=== PATIENT | male | born 1960 | race Caucasian/White ===

== ENCOUNTER → 2018-03-15 | Outpatient (CLI) | payer OTHER ==
--- NOTE | 2018-03-15 12:04 | XR ---
EXAMINATION TYPE: XR Hip Complete LT DATE OF EXAM: 03/15/2018 CLINICAL HISTORY: pain TECHNIQUE: AP and frogleg views of the left hip are obtained. COMPARISON: None. FINDINGS: There is no acute fracture/dislocation evident. The joint space appears within normal li mits. The overlying soft tissue appears unremarkable. IMPRESSION: 1. There is no acute fracture or dislocation.ICD 10 NO FRACTURE, INITIAL EVALUATION
== END ==
LOC: RADXRMAIN 10:44
PROVIDERS: ATTEND Internal Medicine
DX: M25.552 Pain in left hip (principal)
CPT/HCPCS: 73502

== ENCOUNTER → 2019-03-12 | Outpatient (CLI) | payer OTHER ==
--- NOTE | 2019-03-13 07:18 | CT ---
EXAMINATION TYPE: CT soft tissue neck w con DATE OF EXAM: 03/12/2019 COMPARISON: None HISTORY: Left sided facial swelling x6 months. CT DLP: 797 mGycm CONTRAST: Patient injected with 100ml mL of Isovue 300. TECHNIQUE: Axial images at 3 mm thick sections. Reconstructed images in the coronal plane and sagitt al plane are reviewed. FINDINGS: Limited CT sections are obtained the lung apices. The lung apices appear clear. CT neck: The torus tubarius and fossa of Rosenmuller are normal. Cost Recovery Technician spaces are normal. Para nasal sinuses and mastoid air cells are clear. Left parotid gland extends somewhat more anterior than the right adjacent to the nautical instrument mechanic muscles. Significant obvious discrepancy in size not otherwise apparent. No underlying mass or cysts evident. Parotid gland density is homogenous and symmetrical with contralateral side. Submandibular glands, are normal. Small left submandibular lymph node is present. Parapharyngeal spac es are normal. No suspicious adenopathy is evident. The hypopharynx appears within normal limits. Vocal cord level appear symmetrical. Thyroid as visualized is normal. Osseous structures are normal. IMPRESSIONS: 1. Appears to be some slight subtle asymmetry of the parotid glands. Density however is similar with no underlying masses.
== END ==
LOC: RADCTMAIN 17:23
PROVIDERS: ATTEND Otolaryngology
DX: K11.8 Other diseases of salivary glands (principal)
CPT/HCPCS: 70491; Q9967

== ENCOUNTER → 2019-04-21 | Outpatient (CLI) | payer OTHER ==
--- NOTE | 2019-04-21 14:40 | CT ---
EXAMINATION TYPE: CT abdomen pelvis w con DATE OF EXAM: 04/21/2019 COMPARISON: None. HISTORY: Abdominal pain CT DLP: 1545 mGycm, Automated Exposure Control for Dose Reduction was Utilized. CONTRAST: CT scan of the abdomen and pelvis is performed with oral and with IV Contrast, patient injected with 100 mL of Isovue 300. FINDINGS: LUNG BASES: Scattered bilateral small but suspicious pulmonary nodules measuring up to 5 mm right low er lobe axial image 12 and 6 x 4 mm left lower lobe axial image 9. LIVER/GB: Liver heterogeneously hypodense relative to spleen suggesting mild diffuse fatty infiltrati on. PANCREAS: No significant abnormality is seen. SPLEEN: No significant abnormality is seen. ADRENALS: No significant abnormality is seen. KIDNEYS: Simple appearing 1.4 cm thin-walled cyst anterolaterally upper pole left kidney axial image 33 series 7. BOWEL: Oral contrast reaches the level of the left colon making evaluation of distal ball slightly yan boptimal. Stomach is poorly distended and suboptimally evaluated. Appendix not seen with certainty yan spected surgically absent from the cecum. There are diverticula in the proximal sigmoid colon where t here is moderate to severe eccentric wall thickening and mild to moderate ill-defined fluid and fat s tranding centered left upper pelvis axial image 62. No well-formed fluid collection or abscess. No pn eumoperitoneum. PROSTATE/SEMINAL VESICLES: No gross abnormality seen. LYMPH NODES: No greater than 1cm abdominal or pelvic lymph nodes are appreciated. Mild mesenteric tobar ziness left upper to mid abdomen with slightly prominent but subcentimeter scattered lymph nodes. Thi s is nonspecific finding. OSSEOUS STRUCTURES: Mildly anterior wedging L2 vertebra. Multilevel moderate to severe spurring throu ghout the thoracolumbar spine. Moderate to severe disc space narrowing and vacuum disc phenomenon L5- S1 level. Facet arthropathy lower lumbar levels. Moderate axial joint space loss both hips. Osseous s tructures are demineralized. OTHER: No significant additional abnormality is seen. IMPRESSION: 1. Mild to moderate uncomplicated acute diverticulitis proximal sigmoid colon left upper pelvis is pr esent. Degree of wall thickening at this level slightly more prominent or suspicious than expected. F ollow-up colonoscopy after treatment is advised to rule out neoplasm. 2. Scattered small bilateral pulmonary nodules worrisome for hematogenous metastatic disease. Nonemer gent follow-up contrast enhanced chest CT is advised to further evaluate for possible additional nodu les.
== END | disposition home or self-care (01) ==
LOC: RADCTMAIN 11:56
PROVIDERS: ATTEND Internal Medicine
DX: K57.32 Diverticulitis of large intestine without perforation or abscess without bleeding (principal)
CPT/HCPCS: 36415; 74177

== ENCOUNTER 2021-05-01 10:17 | Emergency (ER) | payer OTHER ==
[2021-05-01] MEDS ORDERED: IPRATROPIUM-ALBUTEROL 3 ML NEB INHALATION STA (10:39)
[2021-05-01] MEDS ORDERED: methylPREDNISolone SOD SUCCI 125 MG/2 ML VIAL IV STA (10:39)
--- NOTE | 2021-05-01 10:43 | ED ---
General Adult HPI - General Chief complaint: Shortness of Breath Stated complaint: SOB Time Seen by Provider: 05/01/21 10:20 Source: patient, RN notes reviewed, old records reviewed Mode of arrival: ambulatory Limitations: no limitations - History of Present Illness Initial comments: This is a 61-year-old male who presents emergency department stating that he had his: Vaccines back in August. Patient states he tested positive March 20 for COVID. Patient states since then he continues to cough and be short of breath. Patient states she's seen his physician who put him on steroids and breathing inhaler and azithromycin. Patient states she went and saw the physician today and they sent him into the emergency department to be evaluated. Patient states he continues to be short of breath and continues to cough. Patient states he started Zithromax on Saturday. - Related Data Home Medications Medication Instructions Recorded Confirmed Atorvastatin [Lipitor] 40 mg PO HS 05/01/21 05/01/21 Azithromycin [Zithromax Z-pack (6 See Taper PO DIRECTED 05/01/21 05/01/21 tabs)] Etodolac 400 mg PO BID 05/01/21 05/01/21 Montelukast [Singulair] 10 mg PO DAILY 05/01/21 05/01/21 Tamsulosin [Flomax] 0.4 mg PO HS 05/01/21 05/01/21 Tiotropium Br/Olodaterol HCl 1 spray INHALATION RT-BID 05/01/21 05/01/21 [Stiolto Respimat Inhal [place]] amLODIPine [Norvasc] 5 mg PO DAILY 05/01/21 05/01/21 lisinopriL [Zestril] 20 mg PO DAILY 05/01/21 05/01/21 predniSONE [Deltasone] See Taper PO DIRECTED 05/01/21 05/01/21 Allergies Allergy/AdvReac Type Severity Reaction Status Date / Time No Known Allergies Allergy Verified 05/01/21 11:29 Review of Systems ROS Statement: Those systems with pertinent positive or pertinent negative responses have been documented in the HPI. ROS Other: All systems not noted in ROS Statement are negative. Past Medical History Past Medical History: Hyperlipidemia, Hypertension Additional Past Medical History / Comment(s): bronchitis History of Any Multi-Drug Resistant Organisms: None Reported Past Surgical History: Appendectomy, Hernia Repair Past Psychological History: No Psychological Hx Reported Smoking Status: Former smoker Past Alcohol Use History: Daily, Occasional Past Drug Use History: Marijuana General Exam - General Exam Comments Initial Comments: GENERAL: Patient is well-developed and well-nourished. Patient is nontoxic and well- hydrated and is in mild distress. ENT: Neck is soft and supple. No significant lymphadenopathy is noted. Oropharynx is clear. Moist mucous membranes. Neck has full range of motion without eliciting any pain. EYES: The sclera were anicteric and conjunctiva were pink and moist. Extraocular movements were intact and pupils were equal round and reactive to light. Eyelids were unremarkable. PULMONARY: Unlabored respirations. Good breath sounds bilaterally. No audible rales rhonchi or wheezing was noted. CARDIOVASCULAR: There is a regular rate and rhythm without any murmurs gallops or rubs. ABDOMEN: Soft and nontender with normal bowel sounds. SKIN: Skin is clear with no lesions or rashes and otherwise unremarkable. NEUROLOGIC: Patient is alert and oriented x3. Cranial nerves II through XII are grossly in tact. Motor and sensory are also intact. Normal speech, volume and content. Symmetrical smile. MUSCULOSKELETAL: Normal extremities with adequate strength and full range of motion. No lower extremity swelling or edema. No calf tenderness. LYMPHATICS: No significant lymphadenopathy is noted PSYCHIATRIC: Normal psychiatric evaluation. Limitations: no limitations Course Vital Signs 05/01/21 05/01/21 05/01/21 10:21 11:36 11:43 Temperature 98 F Pulse Rate 73 63 63 Respiratory 18 Rate Blood Pressure 150/93 O2 Sat by Pulse 99 Oximetry 05/01/21 12:50 Temperature Pulse Rate 61 Respiratory 20 Rate Blood Pressure 126/85 O2 Sat by Pulse 98 Oximetry Medical Decision Making - Medical Decision Making EKG shows normal sinus rhythm at 66 bpm VT interval is 148 uracil 104 QT interval is 426 QTC is 446 per patient's EKG shows no ST segment elevation or depression. Chest x-ray shows no acute abnormality.. Patient received a gram of Rocephin. Patient also received a breathing treatment emergency department. Patient already had Zithromax steroids and inhaler for home. Patient felt good enough this time to go home. - Lab Data Result diagrams: 05/01/21 10:48 05/01/21 10:48 Lab Results 12/13/21 12/13/21 12/13/21 Range/Units 10:48 10:48 10:48 WBC 10.7 H (3.8-10.6) k/uL RBC 5.40 (4.30-5.90) m/uL Hgb 17.4 (13.0-17.5) gm/dL Hct 50.4 (39.0-53.0) % MCV 93.2 (80.0-100.0) fL MCH 32.2 (25.0-35.0) pg MCHC 34.6 (31.0-37.0) g/dL RDW 12.4 (11.5-15.5) % Plt Count 245 (150-450) k/uL MPV 8.1 Neutrophils % 83 % Lymphocytes % 11 % Monocytes % 5 % Eosinophils % 1 % Basophils % 0 % Neutrophils # 8.9 H (1.3-7.7) k/uL Lymphocytes # 1.2 (1.0-4.8) k/uL Monocytes # 0.5 (0-1.0) k/uL Eosinophils # 0.1 (0-0.7) k/uL Basophils # 0.0 (0-0.2) k/uL Sodium 135 L (137-145) mmol/L Potassium 4.4 (3.5-5.1) mmol/L Chloride 104 (98-107) mmol/L Carbon Dioxide 20 L (22-30) mmol/L Anion Gap 11 mmol/L BUN 15 (9-20) mg/dL Creatinine 0.98 (0.66-1.25) mg/dL Est GFR (CKD-EPI)AfAm >90 (>60 ml/min/1.73 sqM) Est GFR (CKD-EPI)NonAf 83 (>60 ml/min/1.73 sqM) Glucose 108 H (74-99) mg/dL Plasma Lactic Acid Domenic 2.0 (0.7-2.0) mmol/L Calcium 9.5 (8.4-10.2) mg/dL Magnesium 2.3 (1.6-2.3) mg/dL Total Bilirubin 1.0 (0.2-1.3) mg/dL AST 31 (17-59) U/L ALT 25 (4-49) U/L Alkaline Phosphatase 71 (38-126) U/L Troponin I (0.000-0.034) ng/mL Total Protein 8.1 (6.3-8.2) g/dL Albumin 4.7 (3.5-5.0) g/dL 05/01/21 Range/Units 10:48 WBC (3.8-10.6) k/uL RBC (4.30-5.90) m/uL Hgb (13.0-17.5) gm/dL Hct (39.0-53.0) % MCV (80.0-100.0) fL MCH (25.0-35.0) pg MCHC (31.0-37.0) g/dL RDW (11.5-15.5) % Plt Count (150-450) k/uL MPV Neutrophils % % Lymphocytes % % Monocytes % % Eosinophils % % Basophils % % Neutrophils # (1.3-7.7) k/uL Lymphocytes # (1.0-4.8) k/uL Monocytes # (0-1.0) k/uL Eosinophils # (0-0.7) k/uL Basophils # (0-0.2) k/uL Sodium (137-145) mmol/L Potassium (3.5-5.1) mmol/L Chloride (98-107) mmol/L Carbon Dioxide (22-30) mmol/L Anion Gap mmol/L BUN (9-20) mg/dL Creatinine (0.66-1.25) mg/dL Est GFR (CKD-EPI)AfAm (>60 ml/min/1.73 sqM) Est GFR (CKD-EPI)NonAf (>60 ml/min/1.73 sqM) Glucose (74-99) mg/dL Plasma Lactic Acid Domenic (0.7-2.0) mmol/L Calcium (8.4-10.2) mg/dL Magnesium (1.6-2.3) mg/dL Total Bilirubin (0.2-1.3) mg/dL AST (17-59) U/L ALT (4-49) U/L Alkaline Phosphatase (38-126) U/L Troponin I 0.012 (0.000-0.034) ng/mL Total Protein (6.3-8.2) g/dL Albumin (3.5-5.0) g/dL Disposition Clinical Impression: Bronchitis with bronchospasm Disposition: HOME SELF-CARE Additional Instructions: Continue taking his Zithromax steroids and albuterol treatments. Is patient prescribed a controlled substance at d/c from ED?: No Referrals: Kathryn Greene MD [Primary Care Provider] - 1-2 days Time of Disposition: 13:14
--- NOTE | 2021-05-01 11:24 | XR ---
EXAMINATION TYPE: XR chest 2V DATE OF EXAM: 05/01/2021 COMPARISON: NONE HISTORY: Difficulty breathing, cough and shortness of breath TECHNIQUE: Frontal and lateral views of the chest are obtained. FINDINGS: No evident airspace disease, pneumothorax, or pleural effusion. Right hemidiaphragm is mil dly elevated. Cardiac mediastinal silhouette thought to be within normal limits, suspect prominent ep icardial fat pad. There is thoracic spondylosis. IMPRESSION: No acute cardiopulmonary disease.
[2021-05-01 11:33] LABS: Basophils % (A) 0 %; Eosinophils # (A) 0.1 k/uL (0-0.7); Eosinophils % (A) 1 %; HCT 50.4 % (39.0-53.0); HGB 17.4 gm/dL (13.0-17.5); Lymphocytes # (A) 1.2 k/uL (1.0-4.8); Lymphocytes % (A) 11 %; MCH 32.2 pg (25.0-35.0); MCHC 34.6 g/dL (31.0-37.0); MCV 93.2 fL (80.0-100.0); Mean Platelet Volume 8.1; Monocytes # (A) 0.5 k/uL (0-1.0); Monocytes % (A) 5 %; Neutrophils # (A) 8.9 k/uL (1.3-7.7); Neutrophils % (A) 83 %; Platelet Count 245 k/uL (150-450); RDW 12.4 % (11.5-15.5); WBC 10.7 k/uL (3.8-10.6)
[2021-05-01 11:49] LABS: ALT 25 U/L (4-49); AST 31 U/L (17-59); African American GFR (CKD) >90 (>60 ml/min/1.73 sqM); Albumin 4.7 g/dL (3.5-5.0); Alkaline Phosphatase 71 U/L (38-126); Anion Gap 11 mmol/L; Blood Urea Nitrogen 15 mg/dL (9-20); Calcium 9.5 mg/dL (8.4-10.2); Carbon Dioxide 20 mmol/L (22-30); Chloride 104 mmol/L (98-107); Glucose 108 mg/dL (74-99); Magnesium 2.3 mg/dL (1.6-2.3); Non-African American GFR(CKD) 83 (>60 ml/min/1.73 sqM); Sodium 135 mmol/L (137-145); Total Protein 8.1 g/dL (6.3-8.2)
[2021-05-01 11:50] LABS: Potassium 4.4 mmol/L (3.5-5.1)
[2021-05-01] MEDS ORDERED: cefTRIAXone IN SWFI 1,000 MG/10 ML SYRINGE IVP STA (12:39)
[2021-05-01 13:02] VITALS: RESP 20
[2021-05-01 13:40] VITALS: BP 128/78; PULSE 67; TEMP 98.4
== END 2021-05-01 13:39 | disposition home or self-care (01) ==
LOC: EC 10:17
DX: J20.9 Acute bronchitis, unspecified (principal); I10 Essential (primary) hypertension; E78.5 Hyperlipidemia, unspecified; Z79.899 Other long term (current) drug therapy; Z87.891 Personal history of nicotine dependence; Z86.16 Personal history of COVID-19
CPT/HCPCS: 36415; 94640; 93005; 80053; 83605; 83735; 84484; 85025; 71046; 99285; 96374; 96375; J2930; J0696

== ENCOUNTER → 2021-09-06 | Outpatient (CLI) | payer OTHER ==
[2021-09-07 20:47] LABS: Alternaria alternata IgE <0.10 kU/L; Aspergillus fumagatus IgE <0.10 kU/L; Birch IgE <0.10 kU/L; Cat Epith & Dander IgE <0.10 kU/L; Cladosporian herbarum IgE <0.10 kU/L; Cockroach IgE 0.14 kU/L; Dermato. farinae IgE 0.36 kU/L; Dog Dander IgE <0.10 kU/L; Elm IgE <0.10 kU/L; Maple (Box Elder) IgE <0.10 kU/L; Oak IgE <0.10 kU/L; Ragweed,Common IgE <0.10 kU/L; Red Top (Bentgrass) IgE 0.41 kU/L
== END | disposition home or self-care (01) ==
LOC: LABWHC1 12:24
PROVIDERS: ATTEND Otolaryngology Otolaryngology/Facial Plastic Surgery
DX: J31.0 Chronic rhinitis (principal)
CPT/HCPCS: 36415; 82785; 86003

== ENCOUNTER → 2021-09-21 | Outpatient (CLI) | payer OTHER ==
--- NOTE | 2021-09-21 08:09 | CT ---
EXAMINATION TYPE: CT sinus wo con DATE OF EXAM: 09/21/2021 COMPARISON: None HISTORY: Sinusitis CT DLP: 667.[address] of the paranasal sinuses was performed in the axial and coronal planes. Bone and soft tissue settings are submitted. The paranasal sinuses demonstrate normal aeration and development. The paranasal sinuses are free of mucosal thickening or air fluid level. The osteal meatal units are patent bilaterally. Nasal septal deviation from left to right. No bony destructive changes are seen within the field of view. IMPRESSION: No evidence for sinusitis. Nasal septal deviation from left to right.
== END | disposition home or self-care (01) ==
LOC: RADCTMAIN 06:16
PROVIDERS: ATTEND Otolaryngology Otolaryngology/Facial Plastic Surgery
DX: J34.2 Deviated nasal septum (principal)
CPT/HCPCS: 70486

== ENCOUNTER → 2023-09-30 | Outpatient (CLI) | payer MEDICARE ==
--- NOTE | 2023-10-06 23:41 | P.PCN ---
Date of Procedure: 09/30/23 Operative Findings: Positive study report Date of service is 10/16/2022 History This is a 63-year-old male patient who has been suspected to have obstructive sleep apnea. Patient has loud snoring, sleep fragmentation in addition to chronic hypersomnia sleepiness. The patient accordingly was asked to come in for a home sleep study. The patient is known to have BPH, hypertension hyperlipidemia as comorbid conditions. Pertinent physical findings The patient has a height of 5 feet and 7 inches, weight is 218 pounds with a body mass index of 34.1 Technical description The Sols system was used to complete this home sleep study. Total recording duration was 8 hours and 12 minutes. This is a type III home sleep study. The study started at 10:08 PM and the study ended at 6:20 AM. There was a total of 7 hours and 53 minutes of flow monitoring and 8 hours and 1 minutes of oxygen saturation monitoring Results The respiratory analysis showed a total of 369 obstructive apneas and 128 obstructive hypopneas with a resulting AHI of 63.3 Oxygenation analysis Multiple episodes of desaturations were encountered throughout the sleep study. Total number of oxygen desaturations were 486. Minimum pulse ox was 73% and the patient spent approximately 2 hours and 34 minutes of sleep time at a pulse ox of 89% and below. Cardiac summary The average heart rate was 44 with a minimum heart rate of 40 and a maximal heart of 115 Assessment Severe symptomatic RAYMON with an AHI of 63 Severe nocturnal oxygen desaturation with a minimum pulse ox of 73% Obesity with a body mass index of 34.1 Plan Proceed with CPAP titration.
== END ==
LOC: 3 N SLEEP 11:01
PROVIDERS: ATTEND Internal Medicine Critical Care Medicine
DX: G47.33 Obstructive sleep apnea (adult) (pediatric) (principal); G47.36 Sleep related hypoventilation in conditions classified elsewhere; E66.9 Obesity, unspecified; E78.5 Hyperlipidemia, unspecified; G47.10 Hypersomnia, unspecified; I10 Essential (primary) hypertension; N40.0 Benign prostatic hyperplasia without lower urinary tract symptoms; Z68.34 Body mass index [BMI] 34.0-34.9, adult; Z79.899 Other long term (current) drug therapy

== ENCOUNTER → 2024-10-03 | Outpatient (CLI) | payer MEDICARE ==
--- NOTE | 2024-10-03 08:21 | MR ---
EXAMINATION TYPE: MR lumbar spine wo con DATE OF EXAM: 10/03/2024 8:12 AM COMPARISON: None. CLINICAL INDICATION: Male, 64 years old with history of M51.372 L SPINE DIS DEGEN, Chronic lower back pain, BLE radiculopathy, greater on the left. IV Contrast: cc (None if empty) TECHNIQUE: Multiplanar, multisequence images of the lumbar spine were acquired without IV contrast. Findings: There is a mild remote superior endplate compression fracture of L2. Lumbar vertebral segme nts are normal in alignment. There is moderate degenerative disease at the L3-4, L4-5 and L5-S1 level, there is moderate disc spac e narrowing, circumferential disc bulge and mild discogenic endplate changes. There is a small far right lateral broad-based disc protrusion at the L5-S1 level.. There is a modera te far left broad-based disc protrusion at the L2-3 level. There is moderate facet arthropathy in the lower lumbar spine. The combination of circumferential disc bulge, facet arthropathy and thickening of ligamentum flavum, there is mild to moderate spinal stenosis at the L3-4 and L4-5 levels. There is multilevel neural foraminal stenosis as follows; moderate at L3-4 and L4-5 on the right, mil d at L5-S1 level on the right, severe at the L2-3 and L3-4 levels on the left. IMPRESSION: 1. Mild remote superior endplate compression fracture L2. 2. Moderate multilevel degenerative disease lower lumbar spine as described above. 3. Moderate facet arthropathy in the lower lumbar spine. 4. Lateral broad-based disc protrusions at the L2-3 level on the left at L5-S1 level on the right 5. [id number] spinal stenosis at the L3-4 and L4-5 levels. 6. Multilevel neural foraminal stenosis as described above. [facility], , 10/03/2024 8:19 AM
== END | disposition home or self-care (01) ==
LOC: RADMRIMAIN 07:32
PROVIDERS: ATTEND Emergency Medicine
DX: M51.372 Other intervertebral disc degeneration, lumbosacral region with discogenic back pain and lower extremity pain (principal); M51.26 Other intervertebral disc displacement, lumbar region; S32.020A Wedge compression fracture of second lumbar vertebra, initial encounter for closed fracture; M48.061 Spinal stenosis, lumbar region without neurogenic claudication; M99.73 Connective tissue and disc stenosis of intervertebral foramina of lumbar region; M47.816 Spondylosis without myelopathy or radiculopathy, lumbar region
CPT/HCPCS: 72148